=== PATIENT | male | born 1945 | race Caucasian/White ===

== ENCOUNTER 2020-01-10 07:56 | Outpatient (CLI) | payer MEDICARE, OTHER ==
[2020-01-10 20:20] LABS: SARS-CoV-2 MS2 Positive; SARS-CoV-2 N Gene Negative; SARS-CoV-2 S Gene Negative; SARS-CoV-2 orf1ab Negative
--- NOTE | 2020-01-17 11:39 | EKG ---
Test Reason : Blood Pressure : / mmHG Vent. Rate : 054 BPM Atrial Rate : 054 BPM P-R Int : 164 ms QRS Dur : 088 ms QT Int : 376 ms P-R-T Axes : 056 060 049 degrees QTc Int : 356 ms Sinus bradycardia Otherwise normal ECG Confirmed by DENISE LEE ([id number]) on 01/17/2020 11:38:39 AM Referred By: ADRIANA Confirmed By:DENISE LEE
== END 2020-01-10 07:57 | disposition home or self-care (01) ==
LOC: LABBT 07:56
PROVIDERS: ATTEND Dentist Oral and Maxillofacial Surgery
DX: Z01.818 Encounter for other preprocedural examination (principal); Z11.59 Encounter for screening for other viral diseases
CPT/HCPCS: 93005; U0003; 87635; 93010

== ENCOUNTER 2020-01-13 07:12 | Day surgery (SDC) | payer MEDICARE, OTHER ==
[2020-01-06 15:18] VITALS: BMI 25.7
[2020-01-13] MEDS ORDERED: Dexamethasone 4 mg/ml Vial ONE (08:08)
[2020-01-13] MEDS ORDERED: Clindamycin/D5W 900 mg/50 ml Premix Bag ONE (08:08)
[2020-01-13] MEDS ORDERED: Hydrocortisone 1% Cream 30 GM TUBE ONE (08:16)
[2020-01-13] MEDS ORDERED: Chlorhexidine Gluconate 15 ML UDCUP SSP ONE (08:16)
[2020-01-13] MEDS ORDERED: Lidocaine 1% w/Epinephrine 1:100K 20 ML VIAL ONE (08:16)
[2020-01-13] MEDS ORDERED: AFRIN NASAL MIST 15 ML BOT ONE (08:31)
[2020-01-13] MEDS ORDERED: Fentanyl 100 MCG/2 ML VIAL ONE (09:03)
[2020-01-13] MEDS ORDERED: Dexamethasone 20 MG/5 ML VIAL ONE (11:09)
[2020-01-13] MEDS ORDERED: Lidocaine 1% PF 5 ML VIAL ONE (11:09)
[2020-01-13] MEDS ORDERED: Ketorolac Tromethamine 30 MG/ML VIAL ONE (11:09)
[2020-01-13] MEDS ORDERED: Rocuronium Bromide 10 MG/ML (10ML VIAL) ONE (11:09)
[2020-01-13] MEDS ORDERED: PROPOFOL 200 MG/20 ML VIAL ONE (11:09)
[2020-01-13] MEDS ORDERED: PHENYLEPHRINE-NS 100 MCG/ML 10 ML SYRINGE ONE (11:09)
[2020-01-13] MEDS ORDERED: Ondansetron PF 4 MG/2 ML Vial ONE (11:09)
[2020-01-13] MEDS ORDERED: Glycopyrrolate 0.2 MG/ML 5 ML SYRINGE ONE (11:09)
[2020-01-13] MEDS ORDERED: Ondansetron HCl/PF 4 MG/2 ML Vial IVP PRN (11:21)
[2020-01-13] MEDS ORDERED: Promethazine HCl 25 MG/ML VIAL SLOW IVP PRN (11:21)
[2020-01-13] MEDS ORDERED: HYDROmorphone 2 MG/ML VIAL SLOW IVP PRN (11:21)
--- NOTE | 2020-01-13 18:16 | OP ---
DATE OF PROCEDURE: 01/13/2020 PREOPERATIVE DIAGNOSES: 1. Bilateral mandibular charlene. 2. Sequestrum of right mandibular torus. 3. 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 POSTOPERATIVE DIAGNOSES: 1. Bilateral mandibular charlene. 2. Sequestrum of right mandibular torus. 3. 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 PROCEDURE PERFORMED: Removal of bilateral mandibular charlene. ANESTHESIA: General nasotracheal anesthesia. INDICATIONS FOR PROCEDURE: This is a 74-year-old male with large bilateral mandibular charlene encompassing the entire floor of his mouth now leading to impingement of the lingual frenum with discomfort and difficulty in movement of the tongue. He has had exposed necrotic bone present in his mouth for several months with recurrent abscesses and pain leading to decreased function and requiring surgical intervention for removal of the charlene. DESCRIPTION OF PROCEDURE: The patient was met in the preoperative holding area. Risks, benefits, alternatives to the procedure were reviewed in detail. Questions were sought and answered. Informed consent was obtained. The patient was transferred to the operating room and to the OR table by Anesthesia and Nursing. Safety belt was secured. ASA monitors were attached and the patient was noted to have stable vital signs. IV induction by Anesthesia with nasoendotracheal intubation with GlideScope x1 without complication. The endotracheal tube was secured in a standard head wrap fashion and the patient was prepped and draped in a sterile fashion. A time-out was performed. Procedure began by thoroughly suctioning the oropharynx. A moistened Ray-[place]il throat pack was placed. Peridex mouth rinse and toothbrushing were performed and bilateral inferior alveolar nerve blocks and lingual nerve blocks were performed with 1% lidocaine with 1:100,000 epinephrine. Full-thickness mucoperiosteal envelope flap was reflected bilaterally across the entire lingual surface of the mandible from first molar to first molar. A careful dissection superior and inferior to the bilateral mandibular charlene was performed to protect the soft tissue. 703 bur was used to make a bony trough adjacent to the lingual surface of the mandible. Then, an elevator and mallet and chisel were used for gross removal of the bilateral mandibular charlene segments. The alveolus was then smoothed using a bone bur and rasped bilaterally to create smooth contours. Copious irrigation of the flaps was performed and then closure of the soft tissue was performed using interrupted and running 4-0 chromic sutures. The dehiscence and the floor of mouth mucosa from the exposed necrotic bone were sutured with running 4-0 chromic with PRF membranes sutured into the wound as well. The oropharynx was thoroughly suctioned. A moistened Ray-[place]il throat pack was removed. A gauze pack was placed in the floor of mouth for hemostasis. The patient was extubated in the room and returned to the PACU in stable condition. FLUIDS: See Anesthesia records. BLOOD LOSS: 100 mL. DRAINS: None. SPECIMENS: None. COUNTS: Needle and sponge count verified as correct. IMPLANTS: None. Job ID: [id number]
== END 2020-01-13 14:10 | disposition home or self-care (01) ==
LOC: SDC 07:12
PROVIDERS: ATTEND Dentist Oral and Maxillofacial Surgery
PROC: 0NBV0ZZ Excision of Left Mandible, Open Approach (ICD-10-PCS; principal; 2020-01-13)
PROC: 0NBT0ZZ Excision of Right Mandible, Open Approach (ICD-10-PCS; 2020-01-13)
DX: M27.0 Developmental disorders of jaws (principal); K12.2 Cellulitis and abscess of mouth; I10 Essential (primary) hypertension; E78.5 Hyperlipidemia, unspecified; M81.0 Age-related osteoporosis without current pathological fracture; Z79.899 Other long term (current) drug therapy
CPT/HCPCS: J1100; J1885; J2001; J2405; J2704; J3010; J3490